=== PATIENT | female | born 1970 | race Hispanic/Latino ===

== ENCOUNTER 2022-08-04 20:21 | Emergency (ER) | payer SELFPAY ==
--- OUTSIDE RECORDS SUMMARY | 2022-08-04 20:44 | XMS REPORT | Continuity of Care Document ---
:[address] [facility] t Address [address] [facility] [address] [place] [address] Care Team Providers Name Role Phone Kolby Mcneill Primary Care Physician [phone] Payers Payer Name Policy Type Policy Number Effective Date Expiration Date S ource Problems This patient has no known problems. Allergies, Adverse Reactions, Alerts Allergy Allergy Status Severity Reaction(s) Onset Inactive Treating Comm ents Source Name Type Date Date Clinician No Known DA Active U [facility] Allergie 2-15 Clear s 00:00: Alcazar [address] [place] [address] Medications Ordered Filled Start Stop Current Ordering Indication Dosage Frequency Signature Comments Components Source Medication Medication Date Date Medication? Clinician (SIG) Name Name Dose 2021-0 No Unknown 6-05 00:00: 00 Dose 2021-0 No Unknown 4-04 00:00: 00 Dose 2021-0 No Unknown 4-04 00:00: 00 Dose 2021-0 No Unknown 4-04 00:00: 00 Dose 2021-0 No Unknown 4-04 00:00: 00 Dose 2021-0 No Unknown 4-04 00:00: 00 Dose 2021-0 No Unknown 4-04 00:00: 00 Dose 2021-0 No Unknown 3-28 00:00: 00 Dose 2021-0 No Unknown 3-28 00:00: 00 Dose 2021-0 No Unknown 3-28 00:00: 00 Dose 2021-0 No Unknown 3-28 00:00: 00 Dose 2022-0 No Unknown 3-28 00:00: 00 Dose 2022-0 No Unknown 3-28 00:00: 00 Dose 2022-0 No Unknown 3-22 00:00: 00 Dose 2022-0 No Unknown 3-22 00:00: 00 Dose 2022-0 No Unknown 3-22 00:00: 00 Dose 2022-0 No Unknown 2-16 00:00: 00 Dose 2022-0 No Unknown 1-31 00:00: 00 Dose 1-1 No Unknown 1-29 00:00: 00 trazodone 2020-1 No 1mg 50 mg 1-09 tablet 00:00: 00 aripiprazol 2020-1 No 1mg e 20 mg 1-09 tablet 00:00: 00 Flagyl 500 2020-0 No 1mg mg tablet 4- 00:00: 00 azithromyci 2020-0 No 2mg n 500 mg 4-19 tablet 00:00: 00 Flagyl 500 2018-0 No 1mg mg tablet 1- 00:00: 00 Flagyl 500 2017-1 No 1mg mg tablet 1- 00:00: 00 Flagyl 500 2017-0 No 1mg mg tablet 7-24 00:00: 00 lamotrigine 2018-0 No 1mg ER 50 mg 7-24 tablet,exte 00:00: nded 00 release 24 hr Wellbutrin 2017-0 No 1mg SR 100 mg 7-24 tablet, 12 00:00: hr 00 sustained-r elease Vital Signs Vital Name Observation Time Observation Value Comments Source BP Systolic 2021-11-25 15:34:00 122 mm[Hg] BP Diastolic 2021-11-25 15:34:00 77 mm[Hg] Weight Measured 2021-11-25 15:34:00 162.40 pounds Height Measured 2021-11-25 15:34:00 64.00 inches Body Temperature 2021-11-25 15:34:00 98.40 degrees Heart Rate 2021-11-25 15:34:00 88.00 /min Respiratory Rate 2021-11-25 15:34:00 17.00 /min BP Systolic 2021-05-21 16:52:00 119 mm[Hg] BP Diastolic 2021-05-21 16:52:00 79 mm[Hg] Weight Measured 2021-05-21 16:52:00 161.00 pounds Height Measured 2021-05-21 16:52:00 64.00 inches Body Temperature 2021-05-21 16:52:00 98.30 degrees Heart Rate 2021-05-21 16:52:00 81.00 /min Respiratory Rate 2021-05-21 16:52:00 16.00 /min Weight Measured 2021-05-05 16:10:00 160.00 pounds Height Measured 2021-05-05 16:10:00 64.00 inches Body Temperature 2021-05-05 16:10:00 Heart Rate 2021-05-05 16:10:00 Respiratory Rate 2021-05-05 16:10:00 BP Systolic 2021-05-05 16:10:00 BP Diastolic 2021-05-05 16:10:00 BP Systolic 2021-03-03 16:52:00 117 mm[Hg] BP Diastolic 2021-03-03 16:52:00 75 mm[Hg] Weight Measured 2021-03-03 16:52:00 159.80 pounds Height Measured 2021-03-03 16:52:00 64.00 inches Body Temperature 2021-03-03 16:52:00 98.10 degrees Heart Rate 2021-03-03 16:52:00 82.00 /min Respiratory Rate 2021-03-03 16:52:00 BP Systolic 2021-02-11 15:05:00 138 mm[Hg] BP Diastolic 2021-02-11 15:05:00 84 mm[Hg] Weight Measured 2021-02-11 15:05:00 159.80 pounds Height Measured 2021-02-11 15:05:00 64.00 inches Body Temperature 2021-02-11 15:05:00 98.40 degrees Heart Rate 2021-02-11 15:05:00 76.00 /min Respiratory Rate 2021-02-11 15:05:00 16.00 /min BP Systolic 2020-07-18 08:20:00 109 mm[Hg] BP Diastolic 2020-07-18 08:20:00 72 mm[Hg] Weight Measured 2020-07-18 08:20:00 155.00 pounds Height Measured 2020-07-18 08:20:00 64.00 inches Body Temperature 2020-07-18 08:20:00 97.90 degrees Heart Rate 2020-07-18 08:20:00 66.00 /min Respiratory Rate 2020-07-18 08:20:00 17.00 /min BP Systolic 2020-07-17 14:57:00 123 mm[Hg] BP Diastolic 2020-07-17 14:57:00 82 mm[Hg] Weight Measured 2020-07-17 14:57:00 153.80 pounds Height Measured 2020-07-17 14:57:00 64.00 inches Body Temperature 2020-07-17 14:57:00 98.50 degrees Heart Rate 2020-07-17 14:57:00 74.00 /min Respiratory Rate 2020-07-17 14:57:00 17.00 /min BP Systolic 2018-03-24 09:28:00 127 mm[Hg] BP Diastolic 2018-03-24 09:28:00 82 mm[Hg] Weight Measured 2018-03-24 09:28:00 141.60 pounds Height Measured 2018-03-24 09:28:00 64.00 inches Body Temperature 2018-03-24 09:28:00 98.30 degrees Heart Rate 2018-03-24 09:28:00 80.00 /min Respiratory Rate 2018-03-24 09:28:00 BP Systolic 2018-03-01 15:29:00 121 mm[Hg] BP Diastolic 2018-03-01 15:29:00 82 mm[Hg] Weight Measured 2018-03-01 15:29:00 146.60 pounds Height Measured 2018-03-01 15:29:00 64.00 inches Body Temperature 2018-03-01 15:29:00 98.00 degrees Heart Rate 2018-03-01 15:29:00 68.00 /min Respiratory Rate 2018-03-01 15:29:00 BP Systolic 2017-10-26 17:06:00 136 mm[Hg] BP Diastolic 2017-10-26 17:06:00 90 mm[Hg] Weight Measured 2017-10-26 17:06:00 141.20 pounds Height Measured 2017-10-26 17:06:00 64.00 inches Body Temperature 2017-10-26 17:06:00 98.20 degrees Heart Rate 2017-10-26 17:06:00 69.00 /min Respiratory Rate 2017-10-26 17:06:00 Procedures This patient has no known procedures. Plan of Care Planned Activity Planned Date Details Comments Source Goal Plan of Care Note [code = 01966-6] Goal Plan of Care Note [code = 79107-3] Goal Plan of Care Note [code = 55707-5] Goal Plan of Care Note [code = 99145-0] Goal Plan of Care Note [code = 01333-3] Goal Plan of Care Note [code = 82605-1] Goal Plan of Care Note [code = 07792-6] Goal Plan of Care Note [code = 70712-5] Goal Plan of Care Note [code = 31713-5] Goal Plan of Care Note [code = 93341-4] Goal Plan of Care Note [code = 75944-8] Goal Plan of Care Note [code = 41602-8] Goal Plan of Care Note [code = 80190-5] Goal Plan of Care Note [code = 26801-6] Goal Plan of Care Note [code = 55557-8] Goal Plan of Care Note [code = 86804-7] Goal Plan of Care Note [code = 87824-3] Goal Plan of Care Note [code = 62290-7] Goal Plan of Care Note [code = 43283-2] Goal Plan of Care Note [code = 10529-7] Goal Plan of Care Note [code = 45611-8] Goal Plan of Care Note [code = 35747-5] Goal Plan of Care Note [code = 66714-0] Goal Plan of Care Note [code = 00854-9] Goal Plan of Care Note [code = 47143-0] Encounters Start End Encounter Admission Attending Care Care Encounter Source Date/Time Date/Time Type Type Clinicians Facility Department ID 2022-07-27 2022-07-27 Outpatient SFA SFA [id number] 023 Kobi 16:32:50 16:32:50 0424 Mike Vazquez 2021-11-25 2021-11-25 Outpatient [id number] [id number] 00:00:00 00:00:00 Visit [id number] Results Test Description Test Time Test Comments Results Result Comments Source CT/NG, NAAT, URINE 2021-11-27 20:43:02 Test Item Value Reference Range Interpretation Comme nts GONORRHEA, NAAT NEGATIVE NEGATIVE IMPORTA NT NOTICE: SEE ANNOUNCEMENT AT (test code = [email or web address] Note: 78681) Assay methodolo gy is nucleic acid amplification by transcriptio n mediated amplification (TMA) utilizing the A ptima Combo 2 Assay. CHLAMYDIA, NAAT NEGATIVE NEGATIVE IMPORTA NT NOTICE: SEE ANNOUNCEMENT AT (test code = [email or web address] Note: 80256) Assay methodolo gy is nucleic acid amplification by transcriptio n mediated amplification (TMA) utilizing the A ptima Combo 2 Assay. HEPATITIS PANEL, [id number] 06:22:40 Test Item Value Reference Range Interpretation Comments HEPATITIS A IgM (test NON-REACTIVE NON-REACTIVE code = 95970) HEPATITIS B CORE IgM NON-REACTIVE NON-REACTIVE (test code = 4644) HEPATITIS B SURF AG NON-REACTIVE NON-REACTIVE (test code = 2739) HEPATITIS C ANTIBODY NON-REACTIVE NON-REACTIVE (test code = 4675) INTERPRETATION (NOTE) Hepatitis A HEPATITIS A: (test serology shows no code = 2552) evidence of acu te hepatitis A. INTERPRETATION (NOTE) Hepatitis B HEPATITIS B: (test serology shows no code = 56016) evidence of ac [place] hepatitis B and no indication of exposure to hepatitis B vir us in the previous si xto eight months. INTERPRETATION (NOTE) Hepatitis C HEPATITIS C: (test serology shows no code = 05438) evidence of ex posure to hepatitisC v irus at this time. I t can take up to 12 m onths after exposure tothe hepatitis C vir us for antibodies to become detectab le in the blood in ce rtain patients. UNLES S OTHERWISE INDIC ATED, ALL TESTING PERFORMED [facility], [place]. [address] [place] [address] ERICA JESSICA DIRECTOR: RANDY ORO M.D. CLIA NUMBER [id number] [place]. [id number] HIV 1/2 4TH GEN, RFLX [id number] 06:22:40 Test Item Value Reference Range Interpretation Comments HIV 1/2 4TH GEN, RFLX CONF (test NON-REACTIVE NON-REACTIVE code = 3514) [id number] 05:03:52 Test Item Value Reference Range Interpretation Comments RPR RESULT (test code = NON-REACTIVE NON-REACTIVE 3501) RPR TITER (test code = 3500) NOT INDIC. TITER NOT INDIC. CHLAMYDIA, NAAT, [id number] 21:31:38 Test Item Value Reference Range Interpretation Comments CHLAMYDIA, NAAT NEGATIVE NEGATIVE IMPORTA NT NOTICE: SEE (test code = [place] [address]) [email or web address] [email or web address] Note: Assay methodology is nucleic acid amplification b y search lead m ediated amplification ( TMA) utilizing the A ptima Combo 2 Assay. GONORRHEA, NAAT, [id number] 21:31:38 Test Item Value Reference Range Interpretation Comments GONORRHEA, NAAT NEGATIVE NEGATIVE IMPORTA NT NOTICE: SEE (test code = [place] [address]) [email or web address] [email or web address] Note: Assay methodology is nucleic acid amplification b y search lead m ediated amplification ( TMA) utilizing the A ptima Combo 2 Assay. UNLESS OTHERWISE INDICATED, ALL TESTING PERFORMED [facility] [address] [place] [id number] [place] [address] DIRECTOR: RANDY ORO M.D. CLIA NUMBER [id number] CAP ACCREDITATION N O. [id number] CHLAMYDIA, AMPLIFIED, [id number] 00:00:00 Test Item Value Reference Range Interpretation Comments CHLAMYDIA, NAAT (test code = 40807) NEGATIVE GC, AMPLIFIED, [id number] 00:00:00 Test Item Value Reference Range Interpretation Comments GONORRHEA, NAAT (test code = 25377) NEGATIVE GC, AMPLIFIED, [id number] 00:00:00 Test Item Value Reference Range Interpretation Comments GONORRHEA, NAAT (test code = 71629) NEGATIVE CHLAMYDIA, AMPLIFIED, [id number] 00:00:00 Test Item Value Reference Range Interpretation Comments CHLAMYDIA, NAAT (test code = 39409) NEGATIVE [id number] 00:00:00 Test Item Value Reference Range Interpretation Comments TSH, THIRD GENERATION (test code 3.870 UIU/ML = 2821) ACUTE HEPATITIS [id number] 00:00:00 Test Item Value Reference Range Interpretation Comments HEPATITIS A IgM (test code = NON-REACTIVE 98438) HEPATITIS B CORE IgM (test code NON-REACTIVE = 4644) HEPATITIS B SURF AG (test code = NON-REACTIVE 2739) HEPATITIS C ANTIBODY (test code NON-REACTIVE = 4675) INTERPRETATION HEPATITIS A: (NOTE) (test code = 2552) INTERPRETATION HEPATITIS B: (NOTE) (test code = 20820) INTERPRETATION HEPATITIS C: (NOTE) (test code = 40159) ACUTE HEPATITIS [id number] 00:00:00 Test Item Value Reference Range Interpretation Comments HEPATITIS A IgM (test code = NON-REACTIVE 94281) HEPATITIS B CORE IgM (test code NON-REACTIVE = 4644) HEPATITIS B SURF AG (test code = NON-REACTIVE 2739) HEPATITIS C ANTIBODY (test code NON-REACTIVE = 4675) INTERPRETATION HEPATITIS A: (NOTE) (test code = 2552) INTERPRETATION HEPATITIS B: (NOTE) (test code = 33400) INTERPRETATION HEPATITIS C: (NOTE) (test code = 18586) [id number] 00:00:00 Test Item Value Reference Range Interpretation Comments TSH, THIRD GENERATION (test code 3.870 UIU/ML = 2821) [id number] 00:00:00 Test Item Value Reference Range Interpretation Comments TSH, THIRD GENERATION (test code 3.870 UIU/ML = 2821) CBC W/AUTO [id number] 00:00:00 Test Item Value Reference Range Interpretation Comments WBC (test code = 1001) 6.3 K/UL RBC (test code = 1002) 4.76 M/UL HEMOGLOBIN (test code = 1003) 14.0 G/DL HEMATOCRIT (test code = 1004) 40.2 % MCV (test code = 1005) 84.5 fL MCH (test code = 1006) 29.4 PG MCHC (test code = 1007) 34.8 G/DL RDW (test code = 1038) 13.0 % NEUTROPHILS (test code = 1008) 56.9 % LYMPHOCYTES (test code = 1010) 30.4 % MONOCYTES (test code = 1011) 8.9 % EOSINOPHILS (test code = 1012) 2.6 % BASOPHILS (test code = 1013) 1.0 % IMMATURE GRANULOCYTES (test 0.2 % code = 1036) NUCLEATED RBCS (test code = 0.0 /100WBC'S 1065) PLATELET COUNT (test code = 293 K/UL 1015) ABSOLUTE NEUTROPHILS (test code 3.57 K/UL = 1066) ABSOLUTE LYMPHOCYTES (test code 1.90 K/UL = 1067) ABSOLUTE MONOCYTES (test code = 0.56 K/UL 1068) ABSOLUTE EOSINOPHILS (test code 0.16 K/UL = 1040) ABSOLUTE BASOPHILS (test code = 0.06 K/UL 1069) ABS IMMATURE GRANULOCYTES (test 0.01 K/UL code = 1020) ABS NUCLEATED RBCS (test code = 0.00 K/UL 91665) CBC W/AUTO [id number] 00:00:00 Test Item Value Reference Range Interpretation Comments WBC (test code = 1001) 6.3 K/UL RBC (test code = 1002) 4.76 M/UL HEMOGLOBIN (test code = 1003) 14.0 G/DL HEMATOCRIT (test code = 1004) 40.2 % MCV (test code = 1005) 84.5 fL MCH (test code = 1006) 29.4 PG MCHC (test code = 1007) 34.8 G/DL RDW (test code = 1038) 13.0 % NEUTROPHILS (test code = 1008) 56.9 % LYMPHOCYTES (test code = 1010) 30.4 % MONOCYTES (test code = 1011) 8.9 % EOSINOPHILS (test code = 1012) 2.6 % BASOPHILS (test code = 1013) 1.0 % IMMATURE GRANULOCYTES (test 0.2 % code = 1036) NUCLEATED RBCS (test code = 0.0 /100WBC'S 1065) PLATELET COUNT (test code = 293 K/UL 1015) ABSOLUTE NEUTROPHILS (test code 3.57 K/UL = 1066) ABSOLUTE LYMPHOCYTES (test code 1.90 K/UL = 1067) ABSOLUTE MONOCYTES (test code = 0.56 K/UL 1068) ABSOLUTE EOSINOPHILS (test code 0.16 K/UL = 1040) ABSOLUTE BASOPHILS (test code = 0.06 K/UL 1069) ABS IMMATURE GRANULOCYTES (test 0.01 K/UL code = 1020) ABS NUCLEATED RBCS (test code = 0.00 K/UL 73387) COMPREHENSIVE METABOLIC [id number] 00:00:00 Test Item Value Reference Range Interpretation Comments GLUCOSE (test code = 2217) 105 MG/DL BUN (test code = 2208) 18 MG/DL CREATININE (test code = 2214) 0.81 MG/DL eGFR AMER. (test code 97 ML/MIN/1.73 = 23360) eGFR NON- AMER. (test 84 ML/MIN/1.73 code = 03752) CALC BUN/CREAT (test code = 22 RATIO 2235) SODIUM (test code = 2231) 141 MEQ/L POTASSIUM (test code = 2228) 4.3 MEQ/L CHLORIDE (test code = 2215) 102 MEQ/L CARBON DIOXIDE (test code = 27 MEQ/L 2206) CALCIUM (test code = 2209) 10.2 MG/DL PROTEIN, TOTAL (test code = 7.7 G/DL 2228) ALBUMIN (test code = 2201) 4.7 G/DL CALC GLOBULIN (test code = 3.0 G/DL 2239) CALC A/G RATIO (test code = 1.6 RATIO 2234) BILIRUBIN, TOTAL (test code = 0.2 MG/DL 2206) ALKALINE PHOSPHATASE (test 148 U/L code = 2204) AST (test code = 2218) 25 U/L ALT (test code = 2219) 42 U/L COMPREHENSIVE METABOLIC [id number] 00:00:00 Test Item Value Reference Range Interpretation Comments GLUCOSE (test code = 2217) 105 MG/DL BUN (test code = 2208) 18 MG/DL CREATININE (test code = 2214) 0.81 MG/DL eGFR AMER. (test code 97 ML/MIN/1.73 = 78368) eGFR NON- AMER. (test 84 ML/MIN/1.73 code = 33977) CALC BUN/CREAT (test code = 22 RATIO 2235) SODIUM (test code = 2231) 141 MEQ/L POTASSIUM (test code = 2228) 4.3 MEQ/L CHLORIDE (test code = 2215) 102 MEQ/L CARBON DIOXIDE (test code = 27 MEQ/L 2206) CALCIUM (test code = 2209) 10.2 MG/DL PROTEIN, TOTAL (test code = 7.7 G/DL 2228) ALBUMIN (test code = 2201) 4.7 G/DL CALC GLOBULIN (test code = 3.0 G/DL 2240) CALC A/G RATIO (test code = 1.6 RATIO 2234) BILIRUBIN, TOTAL (test code = 0.2 MG/DL 2207) ALKALINE PHOSPHATASE (test 148 U/L code = 2204) AST (test code = 2218) 25 U/L ALT (test code = 2219) 42 U/L VITAMIN D, 25 [id number] 00:00:00 Test Item Value Reference Range Interpretation Comments VITAMIN D, 25 OH (test code = 4958) 19 NG/ML VITAMIN D, 25 [id number] 00:00:00 Test Item Value Reference Range Interpretation Comments VITAMIN D, 25 OH (test code = 4958) 19 NG/ML CBC W/AUTO [id number] 00:00:00 Test Item Value Reference Range Interpretation Comments WBC (test code = 1001) 6.3 K/UL RBC (test code = 1002) 4.76 M/UL HEMOGLOBIN (test code = 1003) 14.0 G/DL HEMATOCRIT (test code = 1004) 40.2 % MCV (test code = 1005) 84.5 fL MCH (test code = 1006) 29.4 PG MCHC (test code = 1007) 34.8 G/DL RDW (test code = 1038) 13.0 % NEUTROPHILS (test code = 1008) 56.9 % LYMPHOCYTES (test code = 1010) 30.4 % MONOCYTES (test code = 1011) 8.9 % EOSINOPHILS (test code = 1012) 2.6 % BASOPHILS (test code = 1013) 1.0 % IMMATURE GRANULOCYTES (test 0.2 % code = 1036) NUCLEATED RBCS (test code = 0.0 /100WBC'S 1065) PLATELET COUNT (test code = 293 K/UL 1015) ABSOLUTE NEUTROPHILS (test code 3.57 K/UL = 1066) ABSOLUTE LYMPHOCYTES (test code 1.90 K/UL = 1067) ABSOLUTE MONOCYTES (test code = 0.56 K/UL 1068) ABSOLUTE EOSINOPHILS (test code 0.16 K/UL = 1040) ABSOLUTE BASOPHILS (test code = 0.06 K/UL 1069) ABS IMMATURE GRANULOCYTES (test 0.01 K/UL code = 1020) ABS NUCLEATED RBCS (test code = 0.00 K/UL 84163) SCR MAMM BILATERAL SAM CAD [id number] 11:07:06 Name: Jean DOB: 1970 Sex: F - SCR MAMM BILATERAL SAM CAD DIGITALBILATERAL FIRST EVER DIGITAL SCREENING MAMMOGRAM 3D/2D WITH CAD: 08/02/2020LINICAL: Asymptomatic. Digital breast tomosynthesis was performed in addition to routine CC and MLO views. Current mammographic images were evaluated by [employer] CAD (computer-aided detection) software. No prior exams were available for comparison. There are scattered fibroglandular tissues in both breasts. There are nodular densities bilaterally that most likely represent benign fibroadenomas, cysts, or nodular breast tissue, however this must be confirmed with ultrasound. No suspicious mass, architectural distortion, malignant type calcification, or lymph node abnormality detected. IMPRESSION: INCOMPLETE: ADDITIONAL IMAGING EVALUATION NEEDEDBilateral ultrasound recommended. Yumi ingram/roseann:08/07/2020 11:07:06 Radiologist: Mayra Abreu MM, [facility] Mammographyletter sent: AdditionalImaging Mammogram BI-RADS: 0 Incomplete: Additional Imaging Evaluation NeededSCR MAMM BILATERAL SAM CAD [id number] 11:07:06 Name: Jean DOB: 1970 Sex: F - SCR MAMM BILATERAL SAM CAD DIGITALBILATERAL FIRST EVER DIGITAL SCREENING MAMMOGRAM 3D/2D WITH CAD: 08/02/2020LINICAL: Asymptomatic. Digital breast tomosynthesis was performed in addition to routine CC and MLO views. Current mammographic images were evaluated by [employer]wheel CAD (computer-aided detection) software. No prior exams were available for comparison. There are scattered fibroglandular tissues in both breasts. There are nodular densities bilaterally that most likely represent benign fibroadenomas, cysts, or nodular breast tissue, however this must be confirmed with ultrasound. No suspicious mass, architectural distortion, malignant type calcification, or lymph node abnormality detected. IMPRESSION: INCOMPLETE: ADDITIONAL IMAGING EVALUATION NEEDEDBilateral ultrasound recommended. Yumi Wilson M.D. dm/penrad:08/07/2020 11:07:06 Radiologist: Mayra Abreu MM, [facility] Mammographyletter sent: AdditionalImaging Mammogram BI-RADS: 0 Incomplete: Additional Imaging Evaluation NeededVAGINAL PATHOGENS DNA [id number] 00:00:00 Test Item Value Reference Range Interpretation Comments VITOR SPECIES (test code = 66381) NEGATIVE G. VAGINALIS (test code = 80888) POSITIVE T. VAGINALIS (test code = 31142) NEGATIVE HIV AB/AG COMBO RFLX [id number] 00:00:00 Test Item Value Reference Range Interpretation Comments HIV 1/2 4TH GEN, RFLX CONF (test NON-REACTIVE code = 3514) HEMOGLOBIN [id number] 00:00:00 Test Item Value Reference Range Interpretation Comments HEMOGLOBIN A1c (test code = 53641) 5.7 % HIV AB/AG COMBO RFLX [id number] 00:00:00 Test Item Value Reference Range Interpretation Comments HIV 1/2 4TH GEN, RFLX CONF (test NON-REACTIVE code = 3514) HEMOGLOBIN [id number] 00:00:00 Test Item Value Reference Range Interpretation Comments HEMOGLOBIN A1c (test code = 72033) 5.7 % HEMOGLOBIN [id number] 00:00:00 Test Item Value Reference Range Interpretation Comments HEMOGLOBIN A1c (test code = 48002) 5.7 % [id number] 00:00:00 Test Item Value Reference Range Interpretation Comments RPR RESULT (test code = NON-REACTIVE 3501) RPR TITER (test code = 3500) NOT INDIC. TITER [id number] 00:00:00 Test Item Value Reference Range Interpretation Comments RPR RESULT (test code = NON-REACTIVE 3501) RPR TITER (test code = 3500) NOT INDIC. TITER LIPID [id number] 00:00:00 Test Item Value Reference Range Interpretation Comments CHOLESTEROL (test code = 2210) 253 MG/DL TRIGLYCERIDES (test code = 2232) 172 MG/DL HDL CHOLESTEROL (test code = 2220) 48 MG/DL CALC LDL CHOL (test code = 2237) 173 MG/DL RISK RATIO LDL/HDL (test code = 3.60 RATIO 2238) [id number] 00:00:00 Test Item Value Reference Range Interpretation Comments RPR RESULT (test code = NON-REACTIVE 3501) RPR TITER (test code = 3500) NOT INDIC. TITER LIPID [id number] 00:00:00 Test Item Value Reference Range Interpretation Comments CHOLESTEROL (test code = 2210) 253 MG/DL TRIGLYCERIDES (test code = 2232) 172 MG/DL HDL CHOLESTEROL (test code = 2220) 48 MG/DL CALC LDL CHOL (test code = 2237) 173 MG/DL RISK RATIO LDL/HDL (test code = 3.60 RATIO 2238) GC AND CHLAMYDIA, AMPLIFIED, [id number] 00:00:00 Test Item Value Reference Range Interpretation Comments GONORRHEA, NAAT (test code = 52943) NEGATIVE CHLAMYDIA, NAAT (test code = 63187) POSITIVE GC AND CHLAMYDIA, AMPLIFIED, [id number] 00:00:00 Test Item Value Reference Range Interpretation Comments GONORRHEA, NAAT (test code = 79707) NEGATIVE CHLAMYDIA, NAAT (test code = 15184) POSITIVE COMPREHENSIVE METABOLIC [id number] 00:00:00 Test Item Value Reference Range Interpretation Comments GLUCOSE (test code = 2217) 116 MG/DL BUN (test code = 2208) 26 MG/DL CREATININE (test code = 2214) 0.87 MG/DL eGFR AMER. (test code 89 ML/MIN/1.73 = 30559) eGFR NON- AMER. (test 77 ML/MIN/1.73 code = 74693) CALC BUN/CREAT (test code = 30 RATIO 2235) SODIUM (test code = 2231) 143 MEQ/L POTASSIUM (test code = 2228) 4.7 MEQ/L CHLORIDE (test code = 2215) 106 MEQ/L CARBON DIOXIDE (test code = 27 MEQ/L 2206) CALCIUM (test code = 2209) 10.1 MG/DL PROTEIN, TOTAL (test code = 7.5 G/DL 2228) ALBUMIN (test code = 2201) 4.7 G/DL CALC GLOBULIN (test code = 2.8 G/DL 2240) CALC A/G RATIO (test code = 1.7 RATIO 2234) BILIRUBIN, TOTAL (test code = 0.4 MG/DL 2206) ALKALINE PHOSPHATASE (test 132 U/L code = 2204) AST (test code = 2218) 21 U/L ALT (test code = 2219) 25 U/L COMPREHENSIVE METABOLIC [id number] 00:00:00 Test Item Value Reference Range Interpretation Comments GLUCOSE (test code = 2217) 116 MG/DL BUN (test code = 2208) 26 MG/DL CREATININE (test code = 2214) 0.87 MG/DL eGFR AMER. (test code 89 ML/MIN/1.73 = 91672) eGFR NON- AMER. (test 77 ML/MIN/1.73 code = 64875) CALC BUN/CREAT (test code = 30 RATIO 2235) SODIUM (test code = 2231) 143 MEQ/L POTASSIUM (test code = 2228) 4.7 MEQ/L CHLORIDE (test code = 2215) 106 MEQ/L CARBON DIOXIDE (test code = 27 MEQ/L 2206) CALCIUM (test code = 2209) 10.1 MG/DL PROTEIN, TOTAL (test code = 7.5 G/DL 2228) ALBUMIN (test code = 2201) 4.7 G/DL CALC GLOBULIN (test code = 2.8 G/DL 2240) CALC A/G RATIO (test code = 1.7 RATIO 2234) BILIRUBIN, TOTAL (test code = 0.4 MG/DL 2206) ALKALINE PHOSPHATASE (test 132 U/L code = 2204) AST (test code = 2218) 21 U/L ALT (test code = 2219) 25 U/L [id number] 00:00:00 Test Item Value Reference Range Interpretation Comments TSH, THIRD GENERATION (test code 3.480 UIU/ML = 2821) [id number] 00:00:00 Test Item Value Reference Range Interpretation Comments TSH, THIRD GENERATION (test code 3.480 UIU/ML = 2821) [id number] 00:00:00 Test Item Value Reference Range Interpretation Comments TSH, THIRD GENERATION (test code 3.480 UIU/ML = 2821) VAGINAL PATHOGENS DNA [id number] 00:00:00 Test Item Value Reference Range Interpretation Comments VITOR SPECIES (test code = ) NEGATIVE G. VAGINALIS (test code = ) POSITIVE T. VAGINALIS (test code = 90116) NEGATIVE CBC W/AUTO [id number] 00:00:00 Test Item Value Reference Range Interpretation Comments WBC (test code = 1001) 5.5 K/UL RBC (test code = 1002) 4.76 M/UL HEMOGLOBIN (test code = 1003) 14.0 G/DL HEMATOCRIT (test code = 1004) 39.9 % MCV (test code = 1005) 83.8 fL MCH (test code = 1006) 29.4 PG MCHC (test code = 1007) 35.1 G/DL RDW (test code = 1038) 13.0 % NEUTROPHILS (test code = 1008) 60.9 % LYMPHOCYTES (test code = 1010) 28.0 % MONOCYTES (test code = 1011) 7.1 % EOSINOPHILS (test code = 1012) 2.7 % BASOPHILS (test code = 1013) 1.3 % PLATELET COUNT (test code = 1015) 283 K/UL CBC W/AUTO [id number] 00:00:00 Test Item Value Reference Range Interpretation Comments WBC (test code = 1001) 5.5 K/UL RBC (test code = 1002) 4.76 M/UL HEMOGLOBIN (test code = 1003) 14.0 G/DL HEMATOCRIT (test code = 1004) 39.9 % MCV (test code = 1005) 83.8 fL MCH (test code = 1006) 29.4 PG MCHC (test code = 1007) 35.1 G/DL RDW (test code = 1038) 13.0 % NEUTROPHILS (test code = 1008) 60.9 % LYMPHOCYTES (test code = 1010) 28.0 % MONOCYTES (test code = 1011) 7.1 % EOSINOPHILS (test code = 1012) 2.7 % BASOPHILS (test code = 1013) 1.3 % PLATELET COUNT (test code = 1015) 283 K/UL CBC W/AUTO [id number] 00:00:00 Test Item Value Reference Range Interpretation Comments WBC (test code = 1001) 5.5 K/UL RBC (test code = 1002) 4.76 M/UL HEMOGLOBIN (test code = 1003) 14.0 G/DL HEMATOCRIT (test code = 1004) 39.9 % MCV (test code = 1005) 83.8 fL MCH (test code = 1006) 29.4 PG MCHC (test code = 1007) 35.1 G/DL RDW (test code = 1038) 13.0 % NEUTROPHILS (test code = 1008) 60.9 % LYMPHOCYTES (test code = 1010) 28.0 % MONOCYTES (test code = 1011) 7.1 % EOSINOPHILS (test code = 1012) 2.7 % BASOPHILS (test code = 1013) 1.3 % PLATELET COUNT (test code = 1015) 283 K/UL CHLAMYDIA, AMPLIFIED, [id number] 00:00:00 Test Item Value Reference Range Interpretation Comments CHLAMYDIA, TMA (test code = 23004) NEGATIVE CHLAMYDIA, AMPLIFIED, [id number] 00:00:00 Test Item Value Reference Range Interpretation Comments CHLAMYDIA, TMA (test code = 27863) NEGATIVE VAGINAL PATHOGENS DNA [id number] 00:00:00 Test Item Value Reference Range Interpretation Comments VITOR SPECIES (test code = ) NEGATIVE G. VAGINALIS (test code = 82859) POSITIVE T. VAGINALIS (test code = ) NEGATIVE VAGINAL PATHOGENS DNA [id number] 00:00:00 Test Item Value Reference Range Interpretation Comments VITOR SPECIES (test code = ) NEGATIVE G. VAGINALIS (test code = 76043) POSITIVE T. VAGINALIS (test code = 95258) NEGATIVE GC, AMPLIFIED, [id number] 00:00:00 Test Item Value Reference Range Interpretation Comments GONORRHEA, TMA (test code = 58811) NEGATIVE GC, AMPLIFIED, [id number] 00:00:00 Test Item Value Reference Range Interpretation Comments GONORRHEA, TMA (test code = 26456) NEGATIVE VAGINAL PATHOGENS DNA PANEL [ADDED]2018-03-05 00:00:00 Test Item Value Reference Range Interpretation Comments VITOR SPECIES (test code = 71426) NEGATIVE G. VAGINALIS (test code = 49901) POSITIVE T. VAGINALIS (test code = 21081) NEGATIVE VAGINAL PATHOGENS DNA PANEL [ADDED]2018-03-05 00:00:00 Test Item Value Reference Range Interpretation Comments VITOR SPECIES (test code = 07005) NEGATIVE G. VAGINALIS (test code = 90243) POSITIVE T. VAGINALIS (test code = 98910) NEGATIVE NOTE: [ADDED]2018-03-05 00:00:00 Test Item Value Reference Range Interpretation Comments NOTE: (test code = 998) (NOTE) PAP TEST, THINPREP, [id number] 00:00:00 Test Item Value Reference Range Interpretation Comments SOURCE: (test code = Cervical/Endocervical 8001) SLIDES: (test code = 1 8011) LMP: (test code = NOT GIVEN 8021) SPECIMEN ADEQUACY: (NOTE) (test code = 14421) INTERPRETATION: (test NO EPITHELIAL code = 71605) ABNORMALITY SEE BELOW PHOTOGEOLOGIST: Katai (test code = 8101) RIVER Vallejo(ASCP)IAC QC TECHNOLOGIST: Kobi (test code = 8111) RIVER Escobedo(ASCP)IAC LOCATION: (test code (NOTE) = 31837) CPT: (test code = (NOTE) 8140) PAP TEST, THINPREP, [id number] 00:00:00 Test Item Value Reference Range Interpretation Comments SOURCE: (test code = Cervical/Endocervical 8001) SLIDES: (test code = 1 8011) LMP: (test code = NOT GIVEN 8021) SPECIMEN ADEQUACY: (NOTE) (test code = 29671) INTERPRETATION: (test NO EPITHELIAL code = 82468) ABNORMALITY SEE BELOW PHOTOGEOLOGIST: Katia (test code = 8101) RIVER Vallejo(ASCP)IAC QC TECHNOLOGIST: Kobi (test code = 8111) RIVER Escobedo(ASCP)IAC LOCATION: (test code (NOTE) = 33354) CPT: (test code = (NOTE) 8140) HPV HIGH RISK WITH GENOTYPE, [id number] 00:00:00 Test Item Value Reference Range Interpretation Comments HPV HIGH RISK INTERP (test code = NEGATIVE 42627) HPV 16 (test code = 67909) NEGATIVE HPV 18 (test code = 37698) NEGATIVE HPV, HR, OTHER GENOTYPES (test code NEGATIVE = 15188) HPV HIGH RISK WITH GENOTYPE, [id number] 00:00:00 Test Item Value Reference Range Interpretation Comments HPV HIGH RISK INTERP (test code = NEGATIVE 20084) HPV 16 (test code = 31999) NEGATIVE HPV 18 (test code = 61759) NEGATIVE HPV, HR, OTHER GENOTYPES (test code NEGATIVE = 02156) VAGINAL PATHOGENS DNA [id number] 00:00:00 Test Item Value Reference Range Interpretation Comments VITOR SPECIES (test code = ) NEGATIVE G. VAGINALIS (test code = 00294) POSITIVE T. VAGINALIS (test code = 75440) NEGATIVE VAGINAL PATHOGENS DNA [id number] 00:00:00 Test Item Value Reference Range Interpretation Comments VITOR SPECIES (test code = 42391) NEGATIVE G. VAGINALIS (test code = 32491) POSITIVE T. VAGINALIS (test code = 76299) NEGATIVE
--- NOTE | 2022-08-04 23:51 | EDPHYS ---
Physician Documentation [facility] Name: Jean Szymanski Age: 52 yrs Sex: Female : 1970 Arrival Date: 08/04/2022 Time: 20:21 Bed IW9 Private MD: ED Physician Micky Brown HPI: 08/04 12:18 This 52 yrs old Female presents to ER via Ambulatory with complaints of Hand jmm Injury. 12:18 The patient or guardian reports pain. Onset: The symptoms/episode began/occurred jmm acutely, 3 day(s) ago. 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 Associated signs and symptoms: The patient has no apparent associated signs or symptoms. The patient has not experienced similar symptoms in the past. . 23:45 Patient complains of pain to the base of the left 1st phalanx which radiates up the jmm radial side of the wrist. 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 - Social history:: Smoking status: Patient reports the use of cigarette tobacco products, smokes one-half pack cigarettes per day, Reported history of juuling and/or vaping. ROS: 23:45 Constitutional: Negative for fever, chills, and weight loss, Cardiovascular: Negative jmm for chest pain, palpitations, and edema, Respiratory: Negative for shortness of breath, cough, wheezing, and pleuritic chest pain. 23:45 MS/extremity: Positive for pain. 23:45 All other systems are negative. Exam: 23:45 Constitutional: This is a well developed, well nourished patient who is awake, alert, jmm and in no acute distress. Head/Face: atraumatic. Eyes: EOMI, no conjunctival erythema appreciated ENT: Moist Mucus Membranes Neck: Trachea midline, Supple Chest/axilla: Normal chest wall appearance and motion. Cardiovascular: Regular rate and rhythm. 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 23:45 Skin: Appearance: 23:45 Neuro: Orientation: is normal, Mentation: is normal, Memory: is normal. 23:45 Psych: Behavior/mood is pleasant, cooperative. Vital Signs: 21:11 BP 135 / 96; Pulse 72; Resp 17; Temp 98.4; Pulse Ox 99% ; Weight 68.04 kg; Height 5 ft. vc1 0 in. ; Pain 7/10; 21:11 Body Mass Index 29.29 (68.04 kg, 152.4 cm) vc1 21:11 Pain Scale: Adult vc1 MDM: 21:18 Patient medically screened. [facility] 23:49 Differential diagnosis: fracture tendonitis. ED course: Patient eloped from the ED jm prior to final disposition. Administered Medications: 23:52 CANCELLED (Patient Eloped): Ketorolac IM 30 mg IM once vc1 Disposition: 08/05 04:49 Co-signature as Attending Physician, Micky Brown MD I reviewed the patient's care rt provided by the Advanced Practice Provider and agree with the diagnosis and treatment plan. Disposition Summary: 08/04/22 23:50 Eloped Disposition: after being seen by provider yara Reason: unknown [facility] Condition: Stable [facility] Diagnosis - Pain in left wrist [facility] Followup: 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 EDMS EDMS 22:52 22:37 Wrist Left 3 View+RAD.RAD.BRZ ordered. EDMS EDMS 23:52 21:19 Ketorolac IM 30 mg IM once ordered. [facility] vc1
--- NOTE | 2022-08-04 23:51 | ER ---
Nurse's Notes [facility] Name: Jean Szymanski Age: 52 yrs Sex: Female : 1970 Arrival Date: 08/04/2022 Time: 20:21 Bed IW9 Private MD: Diagnosis: Pain in left wrist Presentation: 08/04 21:11 Chief complaint: Patient states: "I feel like one of my bones might be broke or vc1 fractured, when I was at work the other day it started hurting really bad and I can't squeeze anything.". Coronavirus screen: Vaccine status: Patient reports receiving the 2nd dose of the covid vaccine. 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 in the last 14 days. At this time, the client does not indicate any symptoms associated with coronavirus-19. Ebola Screen: Patient negative for fever greater than or equal to 101.5 degrees Fahrenheit, and additional compatible Ebola Virus Disease symptoms Patient denies exposure to infectious person. Patient denies travel to an Ebola-affected area in the 21 days before illness onset. No symptoms or risks identified at this time. Initial Sepsis Screen: Does the patient meet any 2 criteria? No. Patient's initial sepsis screen is negative. Does the patient have a suspected source of infection? No. Patient's initial sepsis screen is negative. Risk Assessment: Do you want to hurt yourself or someone else? Patient reports no desire to harm self or others. Onset of symptoms is unknown. 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 - Social history:: Smoking status: Patient reports the use of cigarette tobacco products, smokes one-half pack cigarettes per day, Reported history of juuling and/or vaping. Screenin:14 Abuse screen: Denies threats or abuse. Nutritional screening: No deficits noted. vc1 Tuberculosis screening: No symptoms or risk factors identified. Vital Signs: 21:11 BP 135 / 96; Pulse 72; Resp 17; Temp 98.4; Pulse Ox 99% ; Weight 68.04 kg; Height 5 ft. vc1 0 in. ; Pain 7/10; 21:11 Body Mass Index 29.29 (68.04 kg, 152.4 cm) vc1 21:11 Pain Scale: Adult vc1 ED Course: 20:27 Patient arrived in ED. mr 20:43 Issac Jones PA is PHCP. yara 20:43 Micky Brown MD is Attending Physician. [facility] 21:13 Triage completed. vc1 21:14 Arm band placed on right wrist. vc1 22:35 Patient's name was called from ER lobby. No response. Unable to locate patient. Will vc1 disposition as left without being seen by a provider. Administered Medications: 23:52 CANCELLED (Patient Eloped): Ketorolac IM 30 mg IM once vc1 Outcome: 22:35 Patient left the ED. vc1 Signatures: Issac Jones PA PA jmm Rivera, Mary mr Calcote, Vanessa, RN RN vc1 Corrections: (The following items were deleted from the chart) 08/05 00:01 00:00 Patient left the ED. vc1 vc1
[2022-08-05 01:05] VITALS: BP 135/96; TEMP 98.4; O2SAT 99
== END 2022-08-05 | disposition left against medical advice (07) ==
LOC: ER 20:21
DX: M25.532 Pain in left wrist (principal)
CPT/HCPCS: 99281